=== PATIENT | female | born 1955 | race Caucasian/White ===

== ENCOUNTER 2016-12-07 08:14 | Day surgery (SDC) | payer BC ==
[~2016-12-07 08:14] MED LIST: Buffered Lidocaine 0.9% SYRIN* 5 ML/SYR SYRINGE INTRADERM ONE
[2016-12-07] MEDS ORDERED: Buffered Lidocaine 0.9% SYRIN* 5 ML/SYR SYRINGE ONE (08:15)
[2016-12-07] MEDS ORDERED: fentaNYL* 50 MCG/ML 2 ML VIAL (100 MCG VIAL) ONE ×2 (09:17→11:18)
[2016-12-07] MEDS ORDERED: Midazolam* 1 MG/ML 2 ML VIAL (2 MG) ONE (09:17)
[2016-12-07] MEDS ORDERED: Silver Nitrate/Potassium Nitr* 1 EA STICK ONE (09:22)
[2016-12-07] MEDS ORDERED: fentaNYL* 50 MCG/ML 2 ML VIAL (100 MCG VIAL) IV PRN (10:10)
[2016-12-07] MEDS ORDERED: DiMENhydriNATE IV* 50 MG/ML VIAL IV PUSH PRN (10:10)
[2016-12-07 12:26] VITALS: BP 135/63
[2016-12-07] MEDS ORDERED: Propofol* 10 MG/ML 20 ML BTL IV PUSH ONE (13:21)
[2016-12-07] MEDS ORDERED: Ketorolac INJ* 30 MG/ML 1 ML VIAL ONE (13:21)
[2016-12-07] MEDS ORDERED: Ondansetron INJ* 2 MG/ML VIAL ONE (13:21)
--- NOTE | 2016-12-08 01:16 | OP ---
DATE OF OPERATION: 12/07/16 - [facility] DATE OF : 59 SURGEON: Ivanna Millan MD ANESTHESIOLOGIST: Juan Pablo Vang MD ANESTHESIA: General endotracheal. PRE-OP DIAGNOSES: Endometrial polyp, postmenopausal bleeding. POST-OP DIAGNOSES: Endometrial polyp, postmenopausal bleeding. OPERATIVE PROCEDURE: Hysteroscopy, D and C with MyoSure device. ESTIMATED BLOOD LOSS: Minimal. SPECIMEN: Endometrial polyp and curettings. FLUIDS: Crystalloid. DRAINS: 300 cc clear urine drain with straight cath prior to the procedure. FINDINGS: Large endometrial polyp extending into the cervix. DESCRIPTION OF PROCEDURE: After informed consent was signed, the patient was taken to the operating room where she was given general anesthesia that was found to be adequate. She was prepped and draped in the dorsal lithotomy position and Abimael stirrups. Two speculums were placed into the vagina to expose the cervix and the anterior lip of the cervix was grasped with a single tooth tenaculum. The cervix was dilated and the uterus was sounded to 7.5 cm. The hysteroscope was then inserted and the previously mentioned findings were noted. The MyoSure device was then assembled and inserted and used to remove the polyp from the lower uterine segment and the cervix. The polyp was removed until it was flushed with the endometrium. The rest of the endometrium appeared normal. The MyoSure device was then removed and sharp curettage was done. The tenaculum was then removed with good hemostasis. The patient was then cleaned, placed back into the supine position, moved to the stretcher and taken to the recovery room in stable condition. [id number]/[facility] #: [id number] MTDD
== END 2016-12-07 12:11 | disposition home or self-care (01) ==
LOC: OR 08:14
PROVIDERS: ATTEND Obstetrics & Gynecology
DX: N84.0 Polyp of corpus uteri (principal); N95.0 Postmenopausal bleeding; E03.9 Hypothyroidism, unspecified; Z68.36 Body mass index [BMI] 36.0-36.9, adult; Z85.820 Personal history of malignant melanoma of skin
CPT/HCPCS: 88305; A9270-GY; J1885; J2250; J2405; J2704; J3010

== ENCOUNTER 2017-06-24 12:55 | Emergency (ER) | payer BC ==
[2017-06-24 13:07] VITALS: BP 143/74
--- NOTE | 2017-06-24 16:40 | UC ---
Bobby Hogan Angela, scribed for Mina Dockery MD on 06/24/17 at 1327 . General HPI - HPI Summary HPI Summary: This pt is a 62 y/o female presenting to [facility] c/o sore throat since yesterday. Pt reports she has had fever, body aches, and sore throat since yesterday. This morning the pt woke up and noticed white patches in the back of her throat so she decided to come in to the ED today. Denies cough, chest pain, SOB. - History of Current Complaint Chief Complaint: UCRespiratory Stated Complaint: THROAT COMPLAINT Time Seen by Provider: 06/24/17 13:05 Hx Obtained From: Patient Onset/Duration: Lasting Days - 1, Still Present Timing: Constant Pain Intensity: 8 Pain Location at: throat Aggravating: nothing Alleviating: nothing Associated Signs & Symptoms: Positive: Fever, Other - POS: body aches, sore throat. Negative: Cough, Chest Pain, SOB - Allergy/Home Medications Allergies/Adverse Reactions: Allergies Allergy/AdvReac Type Severity Reaction Status Date / Time No Known Allergies Allergy Verified 06/24/17 13:07 PMH/Surg Hx/FS Hx/Imm Hx Endocrine History: Hypothyroidism Other Cancer History: Melanoma - Surgical History Surgical History: Yes Surgery Procedure, Year, and Place: 2 c-sections, 1981 abd . appendectomy, 1975. tonsillectomy 1960. 1976, wisdom teeth - Family History Family History: Mother, sister, maternal grandmother: breast CA - Social History Alcohol Use: Occasionally Alcohol Amount: 1 per week Substance Use Type: None Smoking Status (MU): Never Smoked Tobacco Review of Systems Constitutional: Fever Skin: Negative Eyes: Negative ENT: Sore Throat Respiratory: Negative Cardiovascular: Negative Gastrointestinal: Negative Genitourinary: Negative Motor: Negative Neurovascular: Negative Musculoskeletal: Myalgia Neurological: Negative Psychological: Negative All Other Systems Reviewed And Are Negative: Yes Physical Exam - Summary Physical Exam Summary: VITAL SIGNS: Reviewed. GENERAL: Patient is a well-developed and nourished female who is lying comfortable in the stretcher. Patient is not in any acute respiratory distress. HEAD AND FACE: Normocephalic EYES: PERRLA, EOMI x 2. EARS: Hearing grossly intact. MOUTH: Erythematous pharynx with white spots. NECK: Supple, trachea is midline, no adenopathy, no JVD, no carotid bruit. CHEST: Symmetric, no tenderness at palpation LUNGS: Clear to auscultation bilaterally. No wheezing or crackles. CVS: Regular rate and rhythm, S1 and S2 present, no murmurs or gallops appreciated. ABDOMEN: Soft, non-tender. Bowel sounds are normal. No abdominal abnormal pulsations. EXTREMITIES: Full ROM in all major joints, no edema, no cyanosis or clubbing. NEURO: Alert and oriented x 3. No acute neurological deficits. Speech is normal and follows commands. SKIN: Dry and warm Triage Information Reviewed: Yes Vital Signs: Initial Vital Signs Temp 99.2 F 06/24/17 13:05 Pulse 121 06/24/17 13:05 Resp 18 06/24/17 13:05 BP 143/74 06/24/17 13:05 Pulse Ox 96 06/24/17 13:05 Vital Signs Reviewed: Yes Course/Dx - Course Course Of Treatment: This pt is a 62 y/o female presenting to [facility] c/o sore throat since yesterday. Pt reports she has had fever, body aches, and sore throat since yesterday. This morning the pt woke up and noticed white patches in the back of her throat so she decided to come in to the ED today. Denies cough, chest pain, SOB. Rapid strep is positive for strep throat. Therefore pt will be discharged to home with follow up from her PCP. Pt will be given a prescription for Augmentin. I discussed the strep test result with the patient. Pt was instructed to return to the urgent care or go to ER immediately if any of the symptoms return or worsens. Plan of care was discussed with the patient, and pt understands and agrees. All questions were answered to patient satisfaction. There were no further complaints or concerns. Pt is hemodynamically stable, alert and oriented x3. The patient was found to have increased blood pressure in UC. The patient will follow up with PCP for better control of BP. - Differential Dx - Multi-Symptom Provider Diagnoses: Strep throat Discharge - Sign-Out/Discharge Documenting (check all that apply): Discharge/Admit/Transfer - Discharge - Discharge Plan Condition: Stable Disposition: HOME Prescriptions: Amoxicillin/Clavulanate TAB* [Augmentin TAB 875*] 875 mg PO BID #20 tab Patient Education Materials: Strep Throat (DC) Referrals: Koko Tucker MD [Primary Care Provider] - Additional Instructions: FOLLOW UP WITH YOUR PRIMARY CARE PROVIDER WITHIN ONE WEEK FOR HIGH BLOOD PRESSURE NOTED TODAY. RETURN TO URGENT CARE OR THE ED FOR ANY WORSENING OR NEW SYMPTOMS. The documentation as recorded by the Bobby davies Angela accurately reflects the service I personally performed and the decisions made by me, Mina Dockery MD.
== END 2017-06-24 13:39 | disposition home or self-care (01) ==
LOC: UCEAST 12:55
DX: J02.0 Streptococcal pharyngitis (principal); E03.9 Hypothyroidism, unspecified; Z85.820 Personal history of malignant melanoma of skin
CPT/HCPCS: 87651; 99212; G0463